=== PATIENT | male | born 1930 | race Caucasian/White ===

== ENCOUNTER 2020-07-28 07:18 | Observation (INO) ==
[2020-07-28] MEDS ORDERED: ONDANSETRON 4 MG/2 ML VIAL IV STA (07:41)
[2020-07-28 08:47] LABS: Basophils # 0.1 10*3/uL (0.0-0.2); Basophils % 0.9 % (0.0-0.8); Eosinophils # 0.1 10*3/uL (0.0-0.87); Eosinophils % 2.3 % (0.00-10.9); Hemoglobin 15.4 GM/DL (14.0-18.0); Immature Granulocytes % 0.5 %; Immature Granulocytes Absolute 0.03 #; Lymphocytes % 17.2 % (21.2-54.2); Mean Corpuscular HGB Conc 34.2 GM/DL (32-36); Mean Corpuscular Volume 86.5 FL (87-102); Mean Platelet Volume 9.9 FL (9.6-12.0); Monocytes % 8.6 % (1.7-12.7); Neutrophils % 70.5 % (38.7-73.9); Platelet Count 258 T/CUMM (130-400); White Blood Count 5.7 T/CUMM (4-12)
[2020-07-28 09:11] LABS: Albumin 4.1 G/DL (3.4-5.0); Bilirubin,Total 1.3 MG/DL (0.2-1.0); Calcium 9.4 MG/DL (8.5-10.1); Osmolality,Calculated 274.8 MOS/KG (273-304); Potassium 4.2 MMOL/L (3.5-5.1); Total Protein 7.5 G/DL (5.0-7.5)
[2020-07-28] MEDS ORDERED: SODIUM CHLORIDE 0.9% 1,000 ML IV STA (10:36)
[2020-07-28] MEDS ORDERED: DEXTROSE 50% 25 GM/50 ML VIAL IV PRN (12:15)
[2020-07-28] MEDS ORDERED: GLUCAGON 1 MG VIAL IM PRN (12:15)
[2020-07-28] MEDS ORDERED: ONDANSETRON 4 MG/2 ML VIAL IV PRN (12:15)
[2020-07-28 12:55] LABS: Bilirubin,Urine Negative (Negative); Blood, Urine Negative (Negative); Glucose,Urine (UA) Negative (Negative); Ketones,Urine 20 mg/dL (Negative); Mucus,Urine Occasional /LPF (Occasional); Nitrite,Urine Negative (Negative); Protein,Urine Negative; RBC,Urine 1 /HPF (0-4); Urine Appearance CLEAR (Clear); Urine Color Yellow (Yellow); Urine Specific Gravity 1.012 (1.001-1.035); Urine Urobilinogen < 2.0 EU/DL (0.2-1.0)
[2020-07-28] MEDS: hydroCHLOROthiazide 25 MG TABLET PO SCH (14:50)
[2020-07-28] MEDS: LACTULOSE 20 GM/30 ML UDCUP PO SCH ×3 (14:50→20:49)
[2020-07-28] MEDS: PANTOPRAZOLE 40 MG TABLET PO SCH (14:50)
[2020-07-28] MEDS: SODIUM CHLORIDE 0.9% 1,000 ML IV SCH (14:50)
[2020-07-28] MEDS: INSULIN LISPRO 100 UNIT/ML SUBCUT SCH ×2 (16:36→20:48)
[2020-07-28] MEDS ORDERED: ACETAMINOPHEN 325 MG TABLET PO PRN (18:04)
[2020-07-28] MEDS ORDERED: ENOXAPARIN 40 MG/0.4 ML SYRINGE SUBCUT SCH (21:00)
[2020-07-28] MEDS ORDERED: cloNIDine 0.1 MG TABLET PO SCH (21:00)
[2020-07-29] MEDS: LACTULOSE 20 GM/30 ML UDCUP PO SCH ×4 (00:45→12:56)
[2020-07-29] MEDS: SODIUM CHLORIDE 0.9% 1,000 ML IV SCH (04:23)
[2020-07-29 06:17] LABS: Basophils # 0.1 10*3/uL (0.0-0.2); Basophils % 1.6 % (0.0-0.8); Eosinophils # 0.2 10*3/uL (0.0-0.87); Eosinophils % 3.2 % (0.00-10.9); Hematocrit 41.5 VOL% (42.0-52.0); Hemoglobin 14.2 GM/DL (14.0-18.0); Immature Granulocytes % 0.4 %; Immature Granulocytes Absolute 0.02 #; Lymphocytes # 0.9 10*3/uL (1.4-4.0); Lymphocytes % 17.6 % (21.2-54.2); Mean Corpuscular HGB Conc 34.2 GM/DL (32-36); Mean Corpuscular Volume 86.8 FL (87-102); Mean Platelet Volume 10.6 FL (9.6-12.0); Monocytes % 10.3 % (1.7-12.7); Neutrophils % 66.9 % (38.7-73.9); Platelet Count 234 T/CUMM (130-400); Red Blood Count 4.78 MC/CUMM (3.8-5.5)
[2020-07-29 06:47] LABS: Calcium 9.1 MG/DL (8.5-10.1); Osmolality,Calculated 268.1 MOS/KG (273-304); Potassium 3.5 MMOL/L (3.5-5.1); Thyroid Stimulating Hormone 1.62 uIU/ml (0.358-3.74)
[2020-07-29] MEDS: hydroCHLOROthiazide 25 MG TABLET PO SCH (10:10)
[2020-07-29] MEDS: PANTOPRAZOLE 40 MG TABLET PO SCH (10:11)
[2020-07-29] MEDS: INSULIN LISPRO 100 UNIT/ML SUBCUT SCH ×2 (10:58→12:52)
[2020-07-29 12:06] VITALS: BP 155/66
== END 2020-07-29 12:56 | disposition home or self-care (01) ==
LOC: N.EDINP 07:18 → N.ED 07:18 → N.EDINP 14:10 → N.5E 14:29
PROVIDERS: ADMIT Internal Medicine; ATTEND Internal Medicine